=== PATIENT | male | born 1990 | race Caucasian/White ===

== ENCOUNTER 2016-12-28 22:58 | Emergency (ER) | payer OTHER ==
[~2016-12-28] VITALS: Ht 180.3 cm; Wt 81.6 kg
[2016-12-29 01:00] VITALS: BP 134/92
[2016-12-29] MEDS ORDERED: CIPR500T89 PO (01:13)
[2016-12-29] MEDS ORDERED: CIPROFLOXACIN 500 MG TAB PO ONE (01:15)
== END 2016-12-29 01:46 | disposition home or self-care (01) ==
LOC: M ED 23:26
DX: N41.0 Acute prostatitis (principal); S39.012A Strain of muscle, fascia and tendon of lower back, initial encounter; X58.XXXA Exposure to other specified factors, initial encounter; Y92.019 Unspecified place in single-family (private) house as the place of occurrence of the external cause; Y93.89 Activity, other specified; Y99.8 Other external cause status; Z88.1 Allergy status to other antibiotic agents

== ENCOUNTER 2019-07-25 04:41 | Emergency (ER) | payer OTHER ==
[~2019-07-25] VITALS: Ht 180.3 cm; Wt 84.1 kg
[~2019-07-25 04:41] MED LIST: CIPR-249 PO
[2019-07-25 06:45] LABS: INFLUENZA A AMPLIFICATION NEGATIVE (NEGATIVE); INFLUENZA B AMPLIFICATION NEGATIVE (NEGATIVE)
[2019-07-25] MEDS ORDERED: PSEUDOEPHEDRINE 30 MG TAB PO ONE (06:45)
[2019-07-25] MEDS ORDERED: ACETAMINOPHEN 325 MG TAB PO ONE (06:45)
[2019-07-25] MEDS ORDERED: IBUPROFEN 800 MG TAB PO ONE (06:45)
[2019-07-25] MEDS ORDERED: FLUTISP (07:05)
[2019-07-25] MEDS ORDERED: AMOX500C PO (07:07)
[2019-07-25 07:12] VITALS: BP 144/85
== END 2019-07-25 07:39 | disposition home or self-care (01) ==
LOC: M ED 04:41
DX: H66.93 Otitis media, unspecified, bilateral (principal); J06.9 Acute upper respiratory infection, unspecified; J34.89 Other specified disorders of nose and nasal sinuses; Z88.1 Allergy status to other antibiotic agents